=== PATIENT | female | born 1970 | race Caucasian/White ===

== ENCOUNTER 2016-10-29 08:50 | Inpatient (IN) | payer OTHER, MEDICARE ==
[~2016-10-29] VITALS: Ht 152.4 cm; Wt 109.0 kg
--- NOTE | ~2016-10-29 | ECH ---
Transthoracic Echocardiography Report (TTE) Demographics Patient Name GERMAIN MEDEROS Date of Study 10/30/2016 D Patient Number [id number] Visit Number [id number] Date of 1970 Room Number 415 Accession Number [id number] Gender Female Age 46 year(s) Referring Maury James Return Agent Airport Merissa Edmonds [facility] Physician Dwight Santillan MD Physician Interpreting Maury PRADO Client Server Developer Physician Jacob Supervising Ordering Physician Dwight Phillips MD, MD/MLP Nurse Stress Tester Armature Or Fields Conclusions Contractility Score Summary Normal Left Ventricular contractility was noted. Summary Technically fair exam. The estimated left ventricular ejection fraction is 60-65%. Mild left ventricular hypertrophy. Normal right ventricle structure and function. No significant valvular abnormalities. Recommendation The patient will be given the results of this study by the physician who ordered the exam. Procedure Type of Study TTE procedure:Echo Complete SF. Procedure Date Date: 10/30/2016 Start: 09:03 AM Technical Quality: Fair due to body habitus. Indications:Chest pain and Pulmonary embolus. Appropriate Use Criteria: 9 Height: 60 inches Weight: 237 pounds BSA: 2.01 m Rhythm: Within normal limits HR: 77 bpm BP: 116/68 mmHg M-Mode/2D Measurements LV Diastolic Dimension: 3.99 cm LV Systolic Dimension: 3.14 cm LV Septum Diastolic: 1.19 cm LV PW Diastolic: 1.03 cm AO Root Dimension: 2.21 cm Cardiac Output: 8.77 l/min LA Dimension: 3.92 cm Cardiac Index: 4.36 l/min*m RV Diastolic Dimension: 2.53 cm LA volume index: 23 ml/m LVOT: 2.05 cm LVOT VTI: 34.52 cm RV Base: 3.4 cm LV Stroke volume: 113.88 ml RV Mid: 2.3 cm LV Stroke volume index: 56.66 ml/m RV Length: 6.1 cm TAPSE: 3.4 cm TDI-S': 14 cm/s Doppler Measurements AV Peak Velocity: 1.8 m/s MV Peak E-Wave: 1.04 m/s AV Peak Gradient: 12.96 mmHg MV Peak A-Wave: 0.9 m/s AV Mean Gradient: 7.16 mmHg MV E/A Ratio: 1.15 LVOT Peak Velocity: 1.53 m/s MV P1/2t: 61.7 msec AV Area (Continuity):3.11 cm MV Deceleration Time: 223.8 msec MV Area (PHT): 3.57 cm PV Peak Velocity: 0.88 m/s PV Peak Gradient: 3.1 mmHg RA Area: 11.68 cm Findings Left Ventricle The left ventricle is normal in size . Mild left ventricular hypertrophy. Diastolic assessment reveals normal relaxation. Right Ventricle Normal right ventricle structure and function. Left Atrium Normal left atrial size. Right Atrium Normal right atrial size. Mitral Valve Normal mitral valve structure and function. No mitral regurgitation by color Doppler. Aortic Valve The aortic valve was not well imaged. There is no aortic regurgitation by color Doppler. Tricuspid Valve Normal tricuspid valve structure and function. Trivial tricuspid regurgitation by color Doppler. Insufficient tricuspid regurgitant jet to quantify pulmonary pressures. Pulmonic Valve The pulmonic valve is not well visualized. Pericardial Effusion No evidence of pericardial effusion. Miscellaneous Visualized portions of the aortic root and ascending aorta appear normal in size. Pleural Effusion No evidence of pleural effusion. Contractility Score LV regional wall motion:(0-Non visualized 1-Normal 2-Hypokinesis 3-Akinesis 4-Dyskinesis 5-Aneurysm) Signature
[2016-10-31] MEDS ORDERED: EFFEXOR37.5 MG PO (17:39)
[2016-10-31] MEDS ORDERED: VENLAFAXINE HC150 MG PO (17:45)
[2016-10-31] MEDS ORDERED: KLONOPIN DPS1 MG PO (17:46)
[2016-10-31] MEDS ORDERED: CALTRATE-600 D600 MG PO (17:46)
[2016-10-31] MEDS ORDERED: VITAMIN D31000 UNIT PO (17:46)
[2016-10-31] MEDS ORDERED: B-12500 MCG PO (17:47)
[2016-10-31] MEDS ORDERED: SENOKOT S1 TAB PO (17:47)
[2016-10-31] MEDS ORDERED: THERA1 EACH PO (17:48)
[2016-10-31] MEDS ORDERED: DESYREL DPS100 MG PO (17:48)
[2016-10-31] MEDS ORDERED: PROTONIX40 MG PO (17:48)
[2016-10-31] MEDS ORDERED: CALCIUM + D SO1 EACH PO (17:49)
[2016-10-31] MEDS ORDERED: XARELTO20 MG PO (17:50)
[2016-10-31] MEDS ORDERED: XARELTO15 MG PO (17:50)
--- NOTE | 2016-11-07 15:10 | CO ---
ADMIT: 10/29/2016 RM/LOC: 415 [facility] MR#: [id number] 2620 [facility] [address] [place] [id number] GERMAIN MEDEROS [address] [place] [address] Consultation SEX: F AGE: 46 : 1970 DATE OF CONSULTATION: 10/30/2016 ATTENDING PHYSICIAN: Raza Quintanilla MD CONSULTING PHYSICIAN: Jacob Mendiola MD REASON FOR CONSULT: Chest pain. Izabela Dong RN, scribing for Dr. Jacob Mendiola. HISTORY OF PRESENT ILLNESS: Germain is a pleasant 46-year-old female, I have been asked to see in Cardiology consultation by Dr. Quintanilla for chest discomfort. She has no prior history of coronary artery disease. She does have family history of coronary artery disease and her mother having stents in her early 60s with myocardial infarction. Her mom also had a stroke in her early 60s as well. Germain has history of obesity. Recent cholesterol labs demonstrated hyperlipidemia. She has never been treated for that in the past. She has prior history of hypertension which has been controlled with weight loss. She denies any tobacco use or diabetes. She does have obstructive sleep apnea and uses CPAP at home. [facility]. She [facility] with complaints of chest discomfort yesterday. She reports that she had increased shortness of breath and chest pain, off and on for the last 2 weeks. She had recent traveling to [place] with minimal stops to drop-off family members and came right home. Since then, she began having some shortness of breath as well as some peripheral edema. She followed with the [facility] for this, and was given compression stockings and Lasix. She continued to have increased edema and shortness of breath and her Lasix dose was increased. Despite that on Thursday, she was severely short of breath. She thought maybe this was an anxiety attack, so tried some medication for that but that did not help. Yesterday, she was severely short of breath and hypoxic. She came to the ER, where CT scan demonstrated right-sided pulmonary embolus. Cardiac enzymes x1 are negative. She denies any chest discomfort currently. She initially is on heparin. She is now on Xarelto for anticoagulation. EKG does not show any significant ST-T changes. Venous duplex was negative for DVT of lower extremity. She had echocardiogram performed this morning, demonstrating normal right-sided wall motion and pressures with normal ejection fraction of 60%. PAST MEDICAL HISTORY: Obstructive sleep apnea; obesity; newly-diagnosed pulmonary embolus; obstructive sleep apnea, on CPAP; gastroesophageal reflux disease; gallbladder disease, status post cholecystectomy; anxiety; and depression. PAST SURGICAL HISTORY: Includes bilateral TKA; cholecystectomy; hysterectomy; and gastric sleeve surgery. ALLERGIES: NO KNOWN MEDICATION ALLERGIES. ADMIT: 10/29/2016 RM/LOC: 415 [facility] MR#: [id number] [address] [address] GERMAIN MEDEROS [address] [place] [address] Consultation SEX: F AGE: 46 : 1970 MEDICATIONS: Current medications include: 1. Desyrel 100 at bedtime. 2. Effexor 150 daily along with 37.5 daily. 3. Calcium daily. 4. Protonix 40 two times a week. 5. Senokot-S tablet daily. 6. Multivitamin daily. 7. Vitamin B12 daily. 8. Vitamin D daily. 9. Xarelto 15 mg p.o. b.i.d. FAMILY HISTORY: Positive family history of stroke in mom at the age of 63; also mom had history of coronary artery disease, status post PCI x3, with last heart attack at the age of 65. SOCIAL HISTORY: Germain is . She lives at home with her . She denies any alcohol, drug, or tobacco use. She has minimal caffeine use. No special diet at home. REVIEW OF SYSTEMS: GENERAL: Reports increased fatigue over the last few days. No recent fever, chills, or sweats or weight changes. EYES: Some blurry vision on Thursday with her symptoms of shortness of breath. Otherwise, denies any changes now and denies any glaucoma or cataracts. THROAT, MOUTH, AND EARS: Some sinus congestion today. Otherwise, denies hearing loss or problems with nose, mouth or throat. RESPIRATORY: Recent diagnosis for pulmonary embolism; history of obstructive sleep apnea, on CPAP; no hemoptysis. GASTROINTESTINAL: History of gastroesophageal reflux disease and gallbladder disease, status post cholecystectomy. Otherwise, denies heartburn or difficulty swallowing. No change in bowel habits. Denies dark or bloody stools. No history of ulcers, hiatal hernia, or liver disease. GENITOURINARY: Denies dysuria, hematuria, nocturia, urinary tract infection, or kidney stones. Denies history of renal insufficiency or failure. MUSCULOSKELETAL: Denies history of arthritis or gout. Denies muscle or joint pains. ENDOCRINE: Denies history of thyroid dysfunction or diabetes. HEMATOLOGY: Denies history of anemia, easy bruising, or cancer. NEUROLOGIC: Denies chronic headaches, dizziness, syncope, stroke, seizures or numbness or tingling. PSYCHIATRIC: History of depression and anxiety. PHYSICAL EXAMINATION: VITAL SIGNS: Blood pressure 116/69, heart rate 62, respirations 16, temperature 96.0, oxygenation 91% on room air. SKIN: Odin, warm and dry. EYES: Sclerae clear. No xanthelasmas. ENT: Oral mucosa is pink and moist. No jugular venous distention or carotid bruits. CHEST: Respirations are even and unlabored. Lungs are clear to auscultation. ADMIT: 10/29/2016 RM/LOC: 415 [facility] MR#: [id number] [address] [address] GERMAIN MEDEROS Alex [address] [place] [address] Consultation SEX: F AGE: 46 : 1970 HEART: Regular rate and rhythm. Normal S1, S2. No murmurs, rubs or gallops. ABDOMEN: Obese, nontender, nondistended.. MUSCULOSKELETAL: Gait is normal. EXTREMITIES: Peripheral pulses palpable. No clubbing, cyanosis or edema. PSYCHIATRIC: Alert and oriented. Mood and affect are appropriate. DIAGNOSTIC DATA: CTA of chest on 10/27 showed small right nonocclusive pulmonary embolus. Venous duplex on 10/29 was negative for DVT of lower extremities. Sodium 142, potassium 3.0, BUN 20, creatinine 1.1, glucose 102, magnesium 2.4, cholesterol 225. Triglycerides 224, HDL 42, LDL 138. White blood cell count 8.0, hemoglobin 12.0, hematocrit 36.8, platelets 200. Echocardiogram showed ejection fraction of 60% with mild LVH. No significant valvular abnormalities. ASSESSMENT AND PLAN: 1. Chest pain secondary to pulmonary embolism. 2. Pulmonary embolism, on Xarelto. Echo looks normal and the right heart is normal and PA pressures are normal. I agree with anticoagulation. 3. Hyperlipidemia. I recommended to the patient [facility] to discuss lipid treatment with her high LDL of 138 and positive family history of premature coronary artery disease in her mother. She can follow up with them and discuss in 1-2 months possible need for stress test for risk stratification at that time. She states understanding. From my perspective, she can be discharged with [facility] with the [facility]. Thank you for the consultation. "I have read and agree with the documentation that has been completed regarding this visit. By signing this record, I attest that the documentation was completed in my physical presence and is an accurate record of the encounter." Izabela Dong RN / Jacob Mendiola MD / andrea JOB #: [id number] CC: Raza Quintanilla MD, Attending Physician Raza Quintanilla MD, Family Physician
--- NOTE | 2016-11-08 00:45 | ER ---
ADMIT: 10/29/2016 RM/LOC: 415 [facility] MR#: [id number] [address] [address] GERMAIN MEDEROS [address] [place] [address] Emergency Room Report SEX: F AGE: 46 : 1970 DATE: 10/29/2016 ADDENDUM: CHIEF COMPLAINT: Feels anxious, has some chest discomfort and cough. HISTORY OF PRESENT ILLNESS: The patient is a 46-year-old female, who has a history of some panic attacks, PTSD, anxiety, and questionable issues with edema, who comes in complaining of couple days of vague symptoms of feeling a little anxious and developing a cough. She states that she has some questionable heaviness on her chest, but has a difficult time describing that to me. She states she has had a dry cough for the past roughly 24 hours. States she is a little bit more short of breath with exertion. She does have a slight discomfort on her left anterior lateral lower leg, but not in her calf muscles on either side. She notes that she has had some issues recently with some swelling in both legs, but not one leg individually. She has no recent travel or risk factors for having DVT formation. She has been seen by Dr. Bobo over the [facility] recently for some vague complaints of feeling that she feels a little bloated kind of in her abdomen, in her face, and some in her lower extremities. She had been on Lasix lately to see if this would help her symptoms of feeling bloated, and it was noted that she was becoming slightly dehydrated, and her potassium had dropped so as of yesterday, stopped her Lasix. She was supposed to be set up to get an [facility] in the [facility] future [facility] the [facility]. REVIEW OF SYSTEMS: Ten-point review of systems is done and otherwise negative except as in HPI. PAST MEDICAL HISTORY: Significant for anxiety, edema, and panic attacks. MEDICATIONS: See nurse's note. ALLERGIES: SEE NURSE'S NOTE. SOCIAL HISTORY: Denies smoking, drug, or alcohol use. PHYSICAL EXAMINATION: See T-sheet. Focused exam of lower extremities reveals I do not feel any cords. Negative Homans sign. Negative pedal edema. No calf tenderness that I can appreciate. LABORATORY DATA: CBC is normal. Chemistries show low potassium of 2.7, and she was given 40 mEq of potassium p.o. in the Emergency Department. CO2 is 34, BUN is 21, glucose is 102, creatinine is 1.2. First set of cardiac enzymes is normal. BNP is 58. INR was less than 1. ABG on room air shows a pH 7.5, pCO2 of 42.6, and a PO2 of 53. EKG showed sinus rhythm, rate of 70, no signs of ST- elevation or acute MA. Chest x-ray showed nothing acute. CT chest was done, which reveals what could be a subsegmental right-sided PE, which is noted to ADMIT: 10/29/2016 RM/LOC: 415 [facility] MR#: [id number] [address] [place] [id number] GERMAIN MEDEROS [address] [address] Emergency Room Report SEX: F AGE: 46 : 1970 be quite small. No other abnormalities seen on her CT chest. EMERGENCY DEPARTMENT COURSE: The patient had numerous vague symptoms, but due to the cough and some exertional shortness of breath and pain, I did decide to go ahead and get an ABG, which showed that her PO2 was low. At that point, I decided to get a CT angio of her chest, which showed that she had what could be a small pulmonary embolism. I decided to ambulate the patient to see how she tolerated walking on room air and her sats dropped into the mid 80s and she was symptomatically short of breath and dyspneic. At this point, I decided that the patient needs to be admitted due to her significant shortness of breath on exertion with likely PE. She has seen Dr. Quintanilla in the past, and I contacted Dr. Quintanilla, who will be admitting the patient. We did start heparin therapy in the Emergency Department. I also contacted Dr. Bobo through the [facility] before we decided on admission to make her aware the patient was here, and we have re-contacted the office to let them know she is being admitted. DIAGNOSES: 1. Pulmonary embolism. 2. Cough. 3. Chest pain. 4. Hypokalemia. Je Stewart MD/ andrea JOB #: [id number] CC: Raza Quintanilla MD, Attending Physician Raza Quintanilla MD, Family Physician
--- NOTE | 2016-11-24 08:26 | HP ---
ADMIT: 10/29/2016 RM/LOC: 415 [facility] MR#: [id number] [address] [address] IDALMIS MEDEROS [address] [place] [address] History and Physical SEX: F AGE: 46 : 1970 DATE OF SERVICE: 10/29/2016 CHIEF COMPLAINT: Shortness of breath, lower extremity swelling, and chest pain on exertion. HISTORY OF PRESENT ILLNESS: Idalmis is a very pleasant 46-year-old, female, who I have seen in my clinic, but most recently over a year ago in September of 2015, who now gets most of her care at [facility], who presented to the [facility] Department today with complaints of about 2 weeks of progressively worsening shortness of breath, dyspnea on exertion, left-sided chest pain on exertion associated with shortness of breath, nausea, diaphoresis, and radiation up to her shoulder, and bilateral lower extremity edema as well as orthopnea. She notes that in early September, she and her family went on a prolonged car ride to [place] to drop family member off. They did not stay long there and turn right around and came home after dropping the family member off. They did not stop at all in between on the trips. She did not get out and walk at all during this trip. She shortly after coming home from her trip to [place], she developed fairly significant swelling in her lower extremities, and she presented to the [facility] where she was started initially on 40 mg of Lasix and then was increased to 80 mg of Lasix for the swelling. At no point was an echocardiogram or a venous Doppler done. She began to develop chest pain and shortness of breath here in the last few days. Workup in the ER was positive for a right-sided nonocclusive pulmonary embolus. She is now admitted to the hospital for anticoagulation and further workup. PAST MEDICAL HISTORY: Remarkable for: 1. Severe obstructive sleep apnea. 2. Depression and anxiety. 3. Morbid obesity. 4. Vitamin D deficiency. PAST SURGICAL HISTORY: She has had bilateral knee arthroscopies, cholecystectomy, hysterectomy, and C-sections x2. MEDICATIONS: Her outpatient medications include the followin. Effexor 187.5 mg daily. 2. Calcium carbonate 650 mg twice daily. 3. Vitamin D3, 1000 units daily. 4. Clonazepam 1 mg twice daily. 5. Vitamin B12, 500 mcg Thursday, Thursday, and Thursday. 6. Docusate/sennosides once daily. 7. Lasix 80 mg daily. 8. Multivitamin daily. 9. Protonix 40 mg Tuesdays and . 10.Potassium chloride 20 mEq daily. 11.Trazodone 100 mg at bedtime for sleep. 12.Calcium plus vitamin D supplement 300/300 daily. ADMIT: 10/29/2016 RM/LOC: 415 [facility] MR#: [id number] [address] [place] [id number] IDALMIS MEDEROS [address] [place] [address] History and Physical SEX: F AGE: 46 : 1970 ALLERGIES: NO KNOWN DRUG ALLERGIES. SOCIAL HISTORY: She is a nonsmoker. Denies alcohol or recreational drug use. Again, she has most of her care at the [facility]. FAMILY HISTORY: Remarkable for CVAs in her mother in her early 50s and then mother with coronary artery disease beginning in her early 60s. REVIEW OF SYSTEMS: As per HPI. All others reviewed and were negative. PHYSICAL EXAMINATION: VITAL SIGNS: Blood pressure is 102/61, pulse 54, respirations 14, temp 97.4, and O2 saturation is 96% on room air. GENERAL: She is obese, awake, alert, no acute distress, comfortable in the hospital bed. HEENT: Normocephalic, atraumatic. NECK: Supple. No lymphadenopathy. No thyromegaly. HEART: Regular rate and rhythm. No murmurs, gallops, or rubs. LUNGS: Clear to auscultation bilaterally. ABDOMEN: Obese, soft, nontender, nondistended. No rebound, guarding, or masses. EXTREMITIES: No cyanosis, clubbing, or edema. LABORATORY AND X-RAY DATA: CBC without any clinically significant abnormalities. A blood gas done in the ER showed a pH of 7.53, pCO2 of 42, PO2 of 53, and bicarb of 36. CMP remarkable only for a mildly elevated creatinine of 1.2 and a potassium 2.7. It should be noted she did receive 40 mEq of potassium orally in the ER. Cardiac enzymes were negative. Troponin was less than 0.015, and proBNP was 58. Influenza swabs were negative. Chest CT showed a small right upper lobe nonocclusive pulmonary embolus PT/INR less than 1. Chest x-ray no acute cardiopulmonary process. EKG showed some normal sinus rhythm without any hyperacute ST or T-wave changes, no ischemic changes noted. ASSESSMENT AND PLAN: 1. Right upper lobe pulmonary embolus. She has been started on heparin. We will check venous Dopplers. I suspect that this was provoked by her travel to [place], and it maybe ultimately responsible for her chest pain though with her PE on the right side and lot of her chest pain on the ADMIT: 10/29/2016 RM/LOC: 415 [facility] MR#: [id number] [address] [place] [phone] IDALMIS MEDEROS [address] [place] [address] History and Physical SEX: F AGE: 46 : 1970 left side and exertional in nature, I think it best to make sure that we are not dealing with any anginal equivalent as well. 2. Dyspnea and left-sided chest pain on exertion. We will get an echocardiogram and YAMZIN consult. 3. Severe obstructive sleep apnea. We will make sure that she got her CPAP while she is here. 4. Depression and anxiety. 5. Morbid obesity. 6. Hypokalemia. We will plan on replacing this. We will recheck a BMP in the morning. We will also check fasting lipid panel in the morning. If everything checks out, we will plan on discharging her on oral anticoagulation in the coming 24 to 48 hours. Raza Quintanilla MD/ andrea JOB #: [id number] CC: Raza Quintanilla, Attending Physician Raza Quintanilla, Family Physician
--- NOTE | 2016-12-10 08:32 | DS ---
ADMIT: 10/29/2016 RM/LOC: 415 [facility] MR#: [id number] [address] [address] GERMAIN MEDEROS [address] [place] [address] General Discharge Summary SEX: F AGE: 46 : 1970 ADMISSION DATE: 10/29/2016 DISCHARGE DATE: 10/30/2016 PROCEDURES: None. CONSULTATIONS: Dr. Mendiola, [facility] consulted 10/30/2016. HISTORY AND PHYSICAL EXAM: Germain is a pleasant 46-year-old female, who was formally seen in my clinic, but had transferred her care over to the [facility] who presented to [facility] Emergency Department with complaints of 2 weeks of progressively worsening shortness of breath, dyspnea on exertion, left-sided chest pain associated with shortness of breath, nausea, diaphoresis, and radiation up to her shoulder. She recently had some prolonged car rides to [place]. She presented to the [facility] is in the weeks prior to admission with complaints of severe swelling in her bilateral lower extremities and had her Lasix increased, but at no point she had an echocardiogram or venous Doppler done. ER workup was positive for right-sided nonocclusive pulmonary embolus and she was admitted to the hospital for further workup. On her initial exam, her blood pressure was 102/61, pulse 54, respirations 14, temp 97.4, and O2 sats were 96 on room air. She was otherwise showing no signs of respiratory distress or extremis. Remainder of her exam was unremarkable. LAB AND X-RAYS: Again CT of her chest showed a right-sided nonocclusive small pulmonary embolus. Chest x-ray showed no pneumonias. EKG was without any hyperacute ST or T-wave changes. She was subsequently admitted to the hospital for anticoagulation and further observation. HOSPITAL COURSE: Germain's hospital course was overall unremarkable. She was initially started on Xarelto for anticoagulation. Cardiology was consulted for the chest pain component of her complaints. Cardiology's recommendation was for further management of her chest pain and workup as an outpatient. As Germain was not requiring any oxygen during hospital stay and seemed to be doing quite well on room air, decision was made to discharge her back to the [facility] on the 30 of October. DISCHARGE CONDITION: Fair. DISPOSITION: She will be discharged to home. DISCHARGE MEDICATIONS: 1. Effexor 187.5 mg daily. 2. Calcium carbonate 650 mg twice daily. ADMIT: 10/29/2016 RM/LOC: 415 [facility] MR#: [id number] [address] [address] [place] [address] General Discharge Summary SEX: F AGE: 46 : 1970 3. Vitamin D3 of 1000 units daily. 4. Klonopin 1 mg twice daily as needed. 5. Vitamin B12 of 500 mcg Mondays, Wednesdays, and Fridays. 6. Colace, senna once daily. 7. Multivitamin daily. 8. Protonix 40 mg Tuesdays and . 9. Trazodone 100 mg at bedtime for sleep. 10.Xarelto 15 mg twice daily for 21 days and then 20 mg daily thereafter with further management and duration to be determined by her [facility] provider. FOLLOWUP: I have asked her to follow up with her [facility] provider within 1-2 weeks of discharge. Raza Quintanilla MD/ andrea JOB #: [id number] CC: Raza Quintanilla MD, Attending Physician Raza Quintanilla MD, Family Physician
== END 2016-10-30 11:54 | disposition home or self-care (01) | DRG 176 ==
LOC: ER 08:50 → 4PCU 12:00
PROVIDERS: ADMIT Family Medicine
DX: I26.99 Other pulmonary embolism without acute cor pulmonale (principal); Z68.42 Body mass index [BMI] 45.0-49.9, adult; I10 Essential (primary) hypertension; E66.01 Morbid (severe) obesity due to excess calories; E55.9 Vitamin D deficiency, unspecified; F41.0 Panic disorder [episodic paroxysmal anxiety]; K21.9 Gastro-esophageal reflux disease without esophagitis; E87.6 Hypokalemia; F43.10 Post-traumatic stress disorder, unspecified; E78.5 Hyperlipidemia, unspecified; F41.9 Anxiety disorder, unspecified; G47.33 Obstructive sleep apnea (adult) (pediatric); F32.9 Major depressive disorder, single episode, unspecified; Z82.49 Family history of ischemic heart disease and other diseases of the circulatory system; Z96.653 Presence of artificial knee joint, bilateral